=== PATIENT | male | born 1985 | race Caucasian/White ===

== ENCOUNTER 2018-07-16 17:41 | Emergency (ER) | payer BC ==
[~2018-07-16] VITALS: Ht 167.6 cm; Wt 79.4 kg
[2018-07-16 17:49] VITALS: BP 130/80; Ht 167.6 cm; Wt 79.4 kg
[2018-07-16] MEDS ORDERED: LIDOCAINE/MYLANTA 40 ML BTL PO STA (21:35)
[2018-07-16] MEDS ORDERED: ONDANSETRON (ODT) 4 MG TAB ODT STA (21:35)
[2018-07-16] MEDS ORDERED: FAMOTIDINE 20 MG TAB PO STA (21:35)
[2018-07-16] MEDS ORDERED: DICYCLOMINE 10 MG CAP PO ONE (22:00)
[2018-07-16] MEDS ORDERED: FAMO-96 PO (22:23)
[2018-07-16] MEDS ORDERED: ONDA4TAB14 PO (22:23)
[2018-07-16] MEDS ORDERED: DICY10CA40 PO (22:23)
--- NOTE | 2018-07-16 22:31 | ERD ---
ER Documentation Chief Complaint Chief Complaint Dizziness, nausea and emesis today; HPI This is a 33-year-old male with a history of hypertension who presents to ED with complaints of an episode of lightheadedness that occurred today followed by nausea with 2 episodes of vomiting. Patient states that over the past couple days he has been feeling nauseous. Patient states that while at work today as he was getting out of a car he started to feel lightheaded. Patient also admits to having some diarrhea over the past couple days. Patient states that one week ago he was treated for the flu and given antibiotics. Patient states that he finished antibiotics 4 days ago. Patient admits to some mild abdominal cramping and bloating. Denies fever, chills, dizziness with room spinning, headache, worst headache of life, blurry vision, changes in vision, decreased appetite, severe abdominal pain, neck pain no other symptoms. Requesting blood work in the emergency department today. Patient states that he is no longer feeling lightheaded in the emergency department. ROS All systems reviewed and are negative except as per history of present illness. Medications Home Meds Active Scripts Dicyclomine HCl (Dicyclomine HCl) 10 Mg Capsule, 10 MG PO TID PRN for ABDOMINAL CRAMPING, #20 CAP Prov:MARI PARISI PA-C 07/16/18 Famotidine* (Pepcid*) 20 Mg Tablet, 20 MG PO BID for 4 Days, TAB Prov:MARI PARISI PA-C 07/16/18 Ondansetron (Ondansetron Odt) 4 Mg Tab.rapdis, 4 MG PO Q6H PRN for NAUSEA AND/OR VOMITING, #10 TAB Prov:MARI PARISI PA-C 07/16/18 Allergies Allergies: Coded Allergies: aspirin (Verified Allergy, Unknown, 07/16/18) PMhx/Soc Medical and Surgical Hx: pt denies Medical Hx, pt denies Surgical Hx Hx Alcohol Use: No Hx Substance Use: No Hx Tobacco Use: No Smoking Status: Never smoker FmHx Family History: No diabetes Physical Exam Vitals Vital Signs Date Temp Pulse Resp B/P (MAP) Pulse Ox O2 O2 Flow FiO2 Time Delivery Rate 07/16/18 98.7 101 20 130/80 95 17:49 (97) Physical Exam Physical Exam Vitals signs: Reviewed by me. General: Well developed, well nourished, in no acute distress. Patient is awake and alert. Head: Normocephalic, atraumatic. Eyes: Normal conjunctiva, Pupils PERRLA, EOM intact grossly ENT: Pharynx is clear, Moist mucous membranes, external ears, nose and mouth normal, no tonsillar adenopathy, exudate or erythema, no kissing tonsils, no uvula deviation, no tympanic membrane bulging, erythema, purulent air-fluid line seen, Neck: Supple, no masses, lymphadenopathy or JVD Respiratory: Clear to auscultation bilaterally with no wheezing, rhonchi, rales, no distress Cardiovascular: RRR, no murmurs, rubs, or gallops Abdominal: Soft, n nondistended, no peritoneal signs, no rigidity, no surgical abdomen, bowel sounds present all 4 quadrants, nontender light deep palpation all 4 quadrants, no rebound tenderness, McBurney's point nontender, Vargas sign negative : Deferred MSK: No edema, no unilateral swelling, 5/5 strength Back: No midline tenderness. Neurologic: Alert and oriented, moving all extremities, normal speech, no focal weakness, no cerebellar signs. Normal mentation Cranial nerves II through XII intact bilaterally Neuro: M/S: Alert and oriented Face: EOMI, face and pharynx with normal sensation and function Motor: Normal strength throughout Sensation: Normal sensation throughout Speech: Normal Cerebel: Normal coordination Normal gait Normal finger to nose DTR: 2+ and symmetric upper/lower extremities Skin: warm and dry, No rash Psych: Normal mood Result Diagram: 07/16/18214607/[id number]/182146 Results 24 hrs Laboratory Tests Test 07/16/18 21:47 White Blood Count 8.8 10^3/ul Red Blood Count 5.24 10^6/ul Hemoglobin 17.2 g/dl Hematocrit 50.5 % Mean Corpuscular Volume 96.4 fl Mean Corpuscular Hemoglobin 32.8 pg Mean Corpuscular Hemoglobin Concent 34.1 g/dl Red Cell Distribution Width 12.1 % Platelet Count 290 10^3/UL Mean Platelet Volume 9.7 fl Immature Granulocytes % 0.500 % Neutrophils % 58.5 % Lymphocytes % 26.5 % Monocytes % 8.5 % Eosinophils % 5.1 % Basophils % 0.9 % Nucleated Red Blood Cells % 0.0 /100WBC Immature Granulocytes # 0.040 10^3/ul Neutrophils # 5.2 10^3/ul Lymphocytes # 2.3 10^3/ul Monocytes # 0.8 10^3/ul Eosinophils # 0.5 10^3/ul Basophils # 0.1 10^3/ul Nucleated Red Blood Cells # 0.0 10^3/ul Urine Color YELLOW Urine Clarity CLEAR Urine pH 6.0 Urine Specific [place] 1.012 Urine Ketones 1+ mg/dL Urine Nitrite NEGATIVE mg/dL Urine Bilirubin NEGATIVE mg/dL Urine Urobilinogen NEGATIVE mg/dL Urine Leukocyte Esterase NEGATIVE Ajith/ul Urine Hemoglobin NEGATIVE mg/dL Urine Glucose NEGATIVE mg/dL Urine Total Protein NEGATIVE mg/dl Sodium Level 143 mmol/L Potassium Level 3.7 mmol/L Chloride Level 99 mmol/L Carbon Dioxide Level 30 mmol/L Anion Gap 14 Blood Urea Nitrogen 16 mg/dl Creatinine 1.01 mg/dl Est Glomerular Filtrat Rate mL/min > 60 mL/min Glucose Level 96 mg/dl Calcium Level 10.4 mg/dl Total Bilirubin 1.2 mg/dl Direct Bilirubin 0.00 mg/dl Indirect Bilirubin 1.2 mg/dl Aspartate Amino Transf (AST/SGOT) 31 IU/L Alanine Aminotransferase (ALT/SGPT) 40 IU/L Alkaline Phosphatase 77 IU/L Total Protein 8.8 g/dl Albumin 5.1 g/dl Globulin 3.70 g/dl Albumin/Globulin Ratio 1.37 Lipase 249 U/L Current Medications Medications Dose Sig/Brandan Start Time Status Last (Trade) Ordered Route PRN Stop Time Admin Dose Reason Admin Famotidine 20 mg ONCE STAT 07/16/18 DC 07/16/18 (Pepcid) PO 21:35 21:45 07/16/18 21:38 40 ml ONCE STAT 07/16/18 DC 07/16/18 Miscellaneous PO 21:35 21:45 Medication 07/16/18 21:38 (Gi Cocktail (2)) Ondansetron 4 mg ONCE STAT 07/16/18 DC 07/16/18 HCl (Zofran ODT 21:35 21:45 Odt) 07/16/18 21:38 Dicyclomine 20 mg ONCE ONCE 07/16/18 DC 07/16/18 HCl PO 22:00 21:45 (Bentyl) 07/16/18 22:01 Procedures/MDM LAB INTERPRETATION: CBC shows no evidence of hemorrhage or infection Chemistry shows no evidence of significant electrolyte abnormalities or renal insufficiency, mildly elevated anion gap 14, mildly elevated calcium 10.4 Liver function test shows no evidence of acute biliary or hepatic dysfunction, mildly elevated indirect bilirubin 1.2 Lipase shows no evidence of acute pancreatitis ER COURSE: The patient was given Pepcid, Zofran, GI cocktail, dicyclomine The medication was well tolerated and the patient reports improvement in symptoms. The patient was stable throughout ED course. I kept the patient and/or family informed of laboratory and diagnostic imaging results throughout the emergency room course. The patient was promptly evaluated and a treatment plan was devised based on H&P and other data. This plan was discussed with the patient who agreed and had no further questions or concerns prior to discharge. 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 Patient also had an episode of lightheadedness prior to having the episode of nausea and vomiting earlier today. This is likely a ga stroenteritis. Patient is resting peacefully in room and has moist mucous membranes and good skin turgor. I doubt serious electrolyte abnormality or dehydration. Patient was given Zofran in the ED and passed by mouth challenge. Patient was also given Pepcid, GI cocktail and dicyclomine and reports complete resolution of symptoms. Patient had no episodes of vomiting in the emergency department. Patient's abdomen is nontender to palpation during Examination and at discharge so i doubt gastro intestinal emergency. History and physical examination other data not consistent with emergent processes including but not limited to cholecystitis, appendicitis, small bowel obstruction, perforated vis cus, among others. Patient's vitals are stable she can be managed with close outpatient follow-up. Advised patient to follow-up with primary care in 48 hours. Return to ED with any worsening symptoms DISPOSITION PLAN: We discussed follow up with the patient's primary care doctor within 24 to 48 h ours. Patient counseled regarding my diagnostic impression and care plan. Prior to discharge all questions answered. Pt agrees with treatment plan and understands strict return precautions. Precautionary instructions provided including instructions to return to the ER if not improving or for any worsening or changing symptoms or concerns. SPECIALIST FOLLOW UP RECOMMENDED: None Patient has been advised to follow up with primary care in 1-2 days. Disclaimer: Inadvertent spelling and grammatical errors are likely due to EHR/dictation software use and do not reflect on the overall quality of patient care. Also, please note that the electronic time recorded on this note does not necessarily reflect the actual time of the patient encounter. Departure Diagnosis: Primary Impression: Nausea and vomiting Vomiting type: unspecified Vomiting Intractability: non-intractable Quali fied Codes: R11.2 - Nausea with vomiting, unspecified Additional Impression: Diarrhea Diarrhea type: unspecified type Qualified Codes: R19.7 - Diarrhea, unspecified Condition: Stable Patient Instructions: Self-Care for Vomiting and Diarrhea, Nausea and Vomiting- Adult Additional Instructions: Patient advised to return to the ED immediately for new or worsening symptoms. Patient advised to follow up with primary care provider in the next 24-48 hours. Patient verbalized understanding and agrees with treatment plan and course of action. If patient has no primary care they may follow up with one of the community clinics listed on the following page or one of the options listed below [facility] + [address] [address] or [facility] [address] [place] [address] or [facility] [address] [place] [address] MARI PARISI PA-C Jul 16, 2018 22:31
[2018-07-16 22:48] VITALS: PULSE 83; RESP 20
== END 2018-07-16 22:48 | disposition home or self-care (01) ==
LOC: FTE 17:41
DX: R11.2 Nausea with vomiting, unspecified (principal); R19.7 Diarrhea, unspecified; I10 Essential (primary) hypertension
CPT/HCPCS: 36415; 80053; 81003; 83690; 85025; 99283